=== PATIENT | female | born 1985 | race American Indian/Alaskan Native ===

== ENCOUNTER 2017-02-07 14:01 | Emergency (ER) | payer OTHER ==
[2017-02-07 14:30] VITALS: BP 121/81
--- NOTE | 2017-02-07 14:34 | Emergency Department Report ---
Entered by YURIDIA HANKS, acting as scribe for MARIBEL MARTINEZ NP. Chief Complaint: Extremity Injury, Lower Stated Complaint: KNEES SWELLING/LT SWELLING Time Seen by Provider: 02/07/17 14:26 - HPI History of Present Illness: 31 y/o female presents with constant, mild left knee pain and swelling resulting from a fall that occurred 2 days ago. Pt reports that swelling started yesterday. She notes being ambulatory immediately after the fall - ROS Review of Systems: +left knee pain/swelling - Exam Vital Signs: Vital Signs 02/07/17 14:26 Temperature 98.4 F Pulse Rate 78 Respiratory 16 Rate Blood Pressure 121/81 O2 Sat by Pulse 100 Oximetry Physical Exam: mild swelling to the left knee Pt is well and non-toxic + lle edema MSE screening note: Focused history and physical exam performed. Due to findings the following was ordered: us (Fhx of dvt) xr ED Disposition for MSE Condition: Stable This documentation as recorded by the scribe,YURIDIA HANKS,accurately reflects the service I personally performed and the decisions made by MICHELLE haines TRACY M , WAVE SOLDERING MACHINE OPERATOR.
--- NOTE | 2017-02-07 16:36 | XRay Report ---
LEFT KNEE: History: Pain after trauma. The bony architecture is intact without evidence of fracture or dislocation. No significant soft tissue abnormality is seen. IMPRESSION: Normal left knee.
--- NOTE | 2017-02-07 17:41 | Emergency Department Report ---
Entered by YURIDIA HANKS, acting as scribe for MARIBEL MARTINEZ NP. ED Lower Extremity HPI - General Chief Complaint: Extremity Injury, Lower Stated Complaint: KNEES SWELLING/LT SWELLING Time Seen by Provider: 02/07/17 14:29 Source: patient Mode of arrival: Ambulatory Limitations: No Limitations - History of Present Illness Initial Comments: 31 y/o female presents with constant, mild, achy left knee pain and swelling resulting from a fall that occurred 2 days ago, aggravated by walking, alleviated by rest. Pt reports that swelling started yesterday but pt denies LOC , chest pain or SOB. She notes being ambulatory immediately after the fall. LMP occurred 1 week ago per pt. PT states she fell at home when playing with her children. PT states she is having pain behind her knee. PT denies other injuries. PT states she has a concern for DVT because her calf was swollen yesterday and her cousin had a blood clot. MD Complaint: knee injury (left) -: days(s) (2) Injury: Knee: Left (pain and swelling s/p fall) Type of Injury: blunt Place: home Severity: mild, moderate Severity scale (0 -10): 7 Improves With: rest, other (Tylenol ) Worsens With: weight bearing Context: fall Associated Symptoms: ambulatory. denies: snap/pop sensation, swelling, numbness , tingling, unable to bear weight, able to partially bear weight - Related Data Previous Rx's Medication Instructions Recorded Last Taken Type Ibuprofen [Motrin] 600 mg PO Q8H PRN #15 tablet 02/07/17 Unknown Rx Allergies Allergy/AdvReac Type Severity Reaction Status Date / Time No Known Allergies Allergy Verified 02/07/17 14:31 ED Review of Systems Comment: All other systems reviewed and negative Constitutional: denies: chills, fever Eyes: denies: eye pain ENT: denies: ear pain, throat pain Respiratory: denies: cough, shortness of breath Cardiovascular: denies: chest pain Gastrointestinal: denies: abdominal pain, nausea, vomiting, diarrhea Genitourinary: denies: dysuria, frequency, abnormal menses (LMP 1 week ago) Musculoskeletal: joint swelling, other (left knee pain and swelling) Skin: denies: rash Neurological: denies: headache, numbness, other (LOC) ED Past Medical Hx - Past Medical History Previous Medical History?: No - Surgical History Past Surgical History?: No - Social History Smoking Status: Never Smoker Substance Use Type: None - Medications Home Medications: Home Medications Medication Instructions Recorded Confirmed Last Taken Type Ibuprofen [Motrin] 600 mg PO Q8H PRN #15 tablet 02/07/17 Unknown Rx ED Physical Exam - General Limitations: No Limitations General appearance: alert, in no apparent distress - Head Head exam: Present: atraumatic, normocephalic - Eye Eye exam: Present: normal appearance, PERRL, EOMI. Absent: conjunctival injection - ENT ENT exam: Present: normal exam, normal orophraynx, mucous membranes moist, normal external ear exam - Neck Neck exam: Present: normal inspection, full ROM. Absent: tenderness, meningismus, lymphadenopathy, thyromegaly - Respiratory Respiratory exam: Present: normal lung sounds bilaterally. Absent: respiratory distress, wheezes, rales, rhonchi, stridor, chest wall tenderness - Cardiovascular Cardiovascular Exam: Present: regular rate, normal rhythm, normal heart sounds. Absent: bradycardia, tachycardia, irregular rhythm, systolic murmur, diastolic murmur, rubs, gallop - GI/Abdominal GI/Abdominal exam: Present: soft. Absent: distended, tenderness, guarding, rebound - Extremities Exam Extremities exam: Present: full ROM, normal capillary refill, other (mild swelling to the left knee and LLE edema and pain posteriorly). Absent: pedal edema, joint swelling, calf tenderness - Expanded Lower Extremity Exam Right Knee exam: Present: normal inspection, full ROM. Absent: tenderness, swelling Lower Leg exam: Present: normal inspection Neuro vascular tendon exam: Present: no vascular compromise Gait: Positive: observed and normal Left Knee exam: Present: full ROM, swelling. Absent: normal inspection (swelling noted ), tenderness (pain to post knee, not ttp ), ecchymosis, effusion Lower Leg exam: Present: swelling. Absent: tenderness, ecchymosis, erythema, Ana's sign Ankle exam: Present: normal inspection Neuro vascular tendon exam: Present: no vascular compromise Gait: Positive: observed and normal - Back Exam Back exam: Present: normal inspection, full ROM. Absent: tenderness, CVA tenderness (R), CVA tenderness (L), muscle spasm, paraspinal tenderness, vertebral tenderness - Neurological Exam Neurological exam: Present: alert, oriented X3, CN II-XII intact, normal gait ( steady gait), reflexes normal. Absent: altered, abnormal gait, motor sensory deficit - Psychiatric Psychiatric exam: Present: normal affect, normal mood - Skin Skin exam: Present: warm, dry, intact, normal color. Absent: rash ED Course Vital Signs 02/07/17 14:26 Temperature 98.4 F Pulse Rate 78 Respiratory 16 Rate Blood Pressure 121/81 O2 Sat by Pulse 100 Oximetry - Reevaluation(s) Reevaluation #1: 02/07/17 17:23 PT aware of XR and US result. PT has no questions at this time. PT aware of plan of care. - Pulse Oximetry Interpretation Digit-Finger Initial Pulse Oximetry Readin Actions Taken: none ED Lower Extremity MDM - Radiology Data Radiology results: report reviewed XR L knee - NAP US LLE - NO DVT OR SVT - Differential Diagnosis fracture, strain, dvt, effusion Critical Care Time: No ED Disposition Clinical Impression: Leg edema, left Left knee pain Qualifiers: Chronicity: acute Qualified Code(s): M25.562 - Pain in left knee Disposition: DC-01 TO HOME OR SELFCARE Is pt being admited?: No Does the pt Need Aspirin: No Condition: Stable Instructions: Knee Sprain (ED), Knee Pain (ED), RICE Therapy (ED) Additional Instructions: RICE Wear LUIS MANUEL wrap when up and active Follow up with ORTHO in 3-5 days Return to ED if worsening or concerns Prescriptions: Ibuprofen [Motrin] 600 mg PO Q8H PRN #15 tablet PRN Reason: Pain Referrals: FARHANA RONDON MD [Referring] - 3-5 Days PRIMARY CAREMD [Primary Care Provider] - 3-5 Days OLIVER CHAPA MD [Staff Physician] - 3-5 Days Time of Disposition: 17:25 This documentation as recorded by the DEMARIO iglesias RYAN,accurately reflects the service I personally performed and the decisions made by ,MARIBEL MARTINEZ , THREADER.
--- NOTE | 2017-02-08 07:51 | Vascular Lab Report ---
Left Lower Extremity Venous Duplex Study: Reason for Exam: Swelling of the left lower extremity. Comments on the Right: A limited duplex study was done of the proximal veins of the right lower extremity. All veins visualized are freely compressible without evidence of internal echogenicity. Flow is spontaneous and phasic throughout. No evidence of acute or chronic thrombus is seen in any of the vessels visualized. Comments on the Left: All veins visualized are freely compressible without evidence of internal echogenicity. Flow is spontaneous and phasic throughout. No evidence of acute or chronic thrombus is seen in any of the vessels visualized. Impression: No evidence of acute or chronic deep venous thrombosis in the left lower extremity.
== END 2017-02-07 17:41 | disposition home or self-care (01) ==
LOC: ED 14:01
DX: M25.562 Pain in left knee (principal); R60.0 Localized edema; W19.XXXA Unspecified fall, initial encounter; Y93.89 Activity, other specified; Y99.8 Other external cause status; Y92.009 Unspecified place in unspecified non-institutional (private) residence as the place of occurrence of the external cause
CPT/HCPCS: 99284